=== PATIENT | female | born 1950 | race Caucasian/White ===

== ENCOUNTER 2016-05-19 15:51 | Observation (INO) | payer OTHER ==
[~2016-05-19] VITALS: Ht 152.4 cm; Wt 65.0 kg
[~2016-05-19 15:51] MED LIST: AMLO2.5T PO; ASPI81CH37 CHEW; LEVO50TA4 PO; PROT40TA PO; ZETI10TA5 PO
[2016-05-28] MEDS ORDERED: DENO60P SQ (12:25)
[2016-05-29 04:00] VITALS: BP 123/75; PULSE 70; RESP 19; TEMP 98.6; O2SAT 100
[2016-05-29] MEDS ORDERED: ceFAZolin 2 GM PREMIX 50 ML ONE (06:17)
[2016-05-29 06:38] VITALS: BP 135/79; PULSE 66; RESP 16; TEMP 98; O2SAT 98
[2016-05-29] MEDS ORDERED: INSULIN HUMAN REGULAR 1,000 UNITS/10 ML VIAL SQ PRN (06:45)
[2016-05-29] MEDS ORDERED: ceFAZolin 2 GM PREMIX 50 ML IV SCH (06:45)
[2016-05-29] MEDS ORDERED: METOPROLOL TARTRATE 25 MG TAB PO PRN (06:45)
--- NOTE | 2016-05-29 06:48 | RADRPT ---
EXAM DATE/TIME: 05/29/2016 06:31 [place] COMPARISON: No previous studies available for comparison. INDICATIONS : Evaluate for pneumonia,pneumothorax or any communicable diseases. MEDICAL HISTORY : None. SURGICAL HISTORY : None. ENCOUNTER: Initial ACUITY: 1 day PAIN SCORE: 0/10 LOCATION: chest FINDINGS: A single view of the chest demonstrates the lungs to be symmetrically aerated without evidence of mas s, infiltrate or effusion. The cardiomediastinal contours are unremarkable. Osseous structures are intact. CONCLUSION: Normal examination. Pedro Trinidad MD on May 29, 2016 at 6:47 Board Certified Radiologist. This report was verified electronically.
[2016-05-29 07:04] LABS: AUTOMATED NEUTROPHIL # 3.4 TH/MM3 (1.8-7.7); BASOPHIL # 0.1 TH/MM3 (0-0.2); BASOPHIL % 1.8 % (0.0-2.0); EOSINOPHIL # 0.2 TH/MM3 (0-0.4); EOSINOPHIL % 2.5 % (0.0-4.0); HEMO FLAGS DIFF FINAL; LYMPH % 34.6 % (9.0-44.0); LYMPHOCYTE # 2.3 TH/MM3 (1.0-4.8); MEAN CELL VOLUME 84.4 FL (80.0-100.0); MEAN CORPUSCULAR HEMOGLOBIN 28.1 PG (27.0-34.0); MEAN CORPUSCULAR HGB CONC 33.3 % (32.0-36.0); MONO % 10.9 % (0.0-8.0); NEUT % 50.2 % (16.0-70.0); PLATELET COUNT 329 TH/MM3 (150-450); RED BLOOD COUNT 4.39 MIL/MM3 (4.00-5.30); RED CELL DISTRIBUTION WIDTH 14.1 % (11.6-17.2); WHITE BLOOD COUNT 6.7 TH/MM3 (4.0-11.0)
[2016-05-29] MEDS ORDERED: BUPIVACAINE/EPINEPHRINE 0.25% PF 30 ML VIAL ONE (07:05)
[2016-05-29] MEDS ORDERED: FAMOTIDINE 20 MG/2 ML VIAL ONE (07:22)
[2016-05-29] MEDS ORDERED: ACETAMINOPHEN 1000 MG/100 ML VIAL IV ONE (07:22)
[2016-05-29] MEDS ORDERED: HYDROmorphone HCL PF 2 MG/ML VIAL ONE (07:23)
[2016-05-29] MEDS ORDERED: fentaNYL CITRATE 250 MCG/5 ML AMP ONE (07:23)
[2016-05-29] MEDS ORDERED: MIDAZOLAM HCL 2 MG/2 ML VIAL ONE (07:23)
[2016-05-29] MEDS ORDERED: APREPITANT 40 MG CAP ONE (07:44)
[2016-05-29] MEDS ORDERED: LACTATED RINGER'S 1000 ML IV SCH (08:00)
[2016-05-29] MEDS ORDERED: SODIUM CHLORID 0.9% 500 ML IV SCH (08:00)
[2016-05-29] MEDS ORDERED: MAGNESIUM HYDROXIDE SUSP 30 ML CUP PO PRN (09:30)
[2016-05-29] MEDS ORDERED: SODIUM CHLORIDE 0.9% FLUSH 5 ML FLUSH IVF PRN (09:30)
[2016-05-29] MEDS ORDERED: ONDANSETRON HCL 4 MG/2 ML VIAL IV PRN (09:30)
[2016-05-29] MEDS ORDERED: Post-op Orders (for Pharmacy) MISC XX ONE (09:30)
[2016-05-29] MEDS ORDERED: ACETAMINOPHEN/HYDROcodone 325 MG/5 MG TAB PO PRN ×2 (09:30)
--- NOTE | 2016-05-29 09:44 | PD.OP ---
Operative Report Date of Surgery: May 29, 2016 Preoperative Diagnosis: severe GERD, Hiatal hernia Postoperative Diagnosis: same Procedure: lap repair HH with partial fundoplication Anesthesia: general Surgeon: Sandor Rodriguez Odd Job Worker(s): Halle Pantoja Operation and Findings: small HH, 270 degree fundoplication, EBL less than 25 ml. Sandor Rodriguez MD May 29, 2016 09:44
[2016-05-29] MEDS ORDERED: NON-FORMULARY DRUG (Denosumab Inj (Prolia Inj) 60 MG) SQ SCH (09:45)
[2016-05-29] MEDS ORDERED: *morphine SULFATE 8 MG/ML PERIprocedure ONLY ONE (10:06)
[2016-05-29] MEDS ORDERED: MORPHINE SULFATE 4 MG/ML INJ IV PUSH PRN (10:15)
[2016-05-29] MEDS ORDERED: PILL SPLITTER OTHER PRN (10:15)
--- NOTE | 2016-05-29 10:28 | MP ---
cc: PERI PORTILLO M.D.,LESLIE MOORE DATE OF SURGERY: 05/29/2016 PREOPERATIVE DIAGNOSIS Severe gastroesophageal reflux disease and hiatal hernia. POSTOPERATIVE DIAGNOSIS Severe gastroesophageal reflux disease and hiatal hernia. PROCEDURE Laparoscopic repair hiatal hernia with partial fundoplication. SURGEON Dr. Peri Portillo. AIRLINE DISPATCHER Dr. Kole Murillo. ANESTHESIA General. INDICATIONS This is a very pleasant 66-year-old patient of Dr. Amin and Dr. Barnard who has had severe complaints of acid reflux disease and regurgitation and found on workup to have abnormal DeMeester score, esophagitis and unfortunately an abnormal esophageal manometry. Approximately 40% of her swallows do not propagate in a normal fashion and therefore plans were made for a partial fundoplication. INTRAOPERATIVE FINDINGS Relatively small hiatal hernia. A single suture placed to approximate the diaphragmatic crura. Approximate 270 degree partial fundoplication. Estimated blood loss less than 25 mL. DESCRIPTION OF PROCEDURE IN DETAIL The patient was identified as Nallely Vick, taken to the operating room and placed in the supine position. Sequential compression devices were placed on bilateral lower extremities. Following induction of adequate general endotracheal anesthesia, the patient's abdomen was prepped and draped in usual sterile fashion with Betadine. A time-out procedure was performed. Following completion of time-out procedure to everyone's satisfaction within room, 0.25% Marcaine with epinephrine was placed at each incision site. A small supraumbilical vertical incision was made with a scalpel and dissection continued posterior to the level of the midline fascia. The base of the umbilicus was retracted anteriorly and supraumbilical fascia was incised with a scalpel allowing for entry in the peritoneal cavity with a hemostat. Surgeon's finger confirmed intraperitoneal location. The applied medical balloon Yuan trocar was placed in the peritoneal cavity, its balloon inflated with C02 insufflation until a level of 15 mmHg ensued. The patient was placed in a steep reverse Trendelenburg position and four upper abdominal 5 mm trocars were placed in the peritoneal cavity direct laparoscopic view after incision of skin with scalpel. A long мария flex liver retractor was placed beneath the left lateral lobe of the liver and retracted anteriorly, thus identifying the diaphragmatic defect. Attention was turned first taking down the gastrohepatic ligament which was performed with the harmonic scalpel, which allowed for identification of the right diaphragmatic crura. Tissue was carefully dissected free of the right diaphragmatic crura entering the mediastinal tissues. Dissection continued across the anterior portion of the diaphragmatic crura. Once this had been dissected nicely, attention was turned to taking down the short gastric vessels. These were taken down carefully using the harmonic scalpel all the way until the left diaphragmatic crura was identified and it was gently dissected free of the attached tissues. This allowed for development of posterior esophageal window posterior to the identified posterior vagus nerve which was left intact. The acosta's hook мария flex retractor was then placed through this posterior window to facilitate elevation of the GE junction and further dissection of the esophagus free from mediastinal tissues. This was performed with a harmonic scalpel. This resulted in excellent exposure and return of the GE junction to the infra and diaphragmatic position. The acosta's hook retractor was removed and the fundus of the stomach was brought through the posterior window using blunt graspers. This lay without any tension on the right side of the esophagus. Sequential dilatation of the esophagus with esophageal bougies was performed by the nurse conference services director who passed a 36, then 44, then 48-Romansh bougie. Due to the relative small size of the patient the 48-Romansh bougie was left in position. Using the suture lpn medical assistant device and 0-Ethibond sutures, single stitch was placed in the posterior diaphragmatic crura to approximate the hiatal hernia defect. There was no tension on the suture at all. Approximately 270 degree fundoplication was then performed, first placing three sutures from the stomach on the right side of the esophagus to the diaphragmatic crura on the right and then suturing the full-thickness stomach to partial-thickness esophagus at about the 10 o'clock position of the esophagus on the right side. Attention was then turned to placement of three sutures at about the 2 o'clock position of the esophagus, full-thickness stomach, partial-thickness esophagus. At this point esophageal bougie was removed to facilitate approximation of the fundal wrap to the left side diaphragmatic crura with three separate sutures using again the Ethibond suture and the suture lpn medical assistant device. This completed the 270 degree partial fundoplication. There was minimal bloody drainage which was suctioned out. There was no evidence of bleeding continuing anywhere. Photographs were taken throughout the procedure to document the different anatomic features of the procedure. Remaining local anesthetic was placed in the subdiaphragmatic position. The left lateral lobe of the liver Мария-flex retractor was removed. There was no evidence of injury to the liver. The gallbladder appeared normal, other intra-abdominal contents on brief survey also appeared normal. Trocars were removed under direct visualization. There was no evidence of bleeding from trocar sites. The abdomen was actively desufflated through the supraumbilical port which was then removed. Supraumbilical fascial incision was closed with interrupted 0 Vicryl sutures. Port site skin incisions were approximated with 4-0 Monocryl subcuticular sutures. Dressings were applied with Mastisol, half-inch brown Steri-Strips. The patient tolerated the procedure without apparent complication. Sponge, needle and instrument counts were correct at the end of the case. MD EMELY Catherine/TLL /9:38 AM /9:50 AM
[2016-05-29] MEDS ORDERED: NEOSTIGMINE 3 MG/3 ML SYR IV ONE (10:35)
[2016-05-29] MEDS ORDERED: ONDANSETRON HCL 4 MG/2 ML VIAL IV PUSH ONE (10:35)
[2016-05-29] MEDS ORDERED: PHENYLEPH/NS 1000 MCG/10 ML SYR IV ONE (10:35)
[2016-05-29] MEDS ORDERED: PROPOFOL 200 MG/20 ML AMP IV ONE (10:35)
[2016-05-29] MEDS ORDERED: SODIUM CHLORID 0.9% 500 ML INJ 500 ML IV ONE (10:36)
[2016-05-29] MEDS: SODIUM CHLOR 0.9% 1000 ML INJ 1,000 ML IV SCH ×2 (10:40→20:28)
[2016-05-29 13:00] LABS: POTASSIUM 3.7 MEQ/L (3.5-5.1)
[2016-05-29] MEDS: ACETAMINOPHEN 1000 MG/100 ML VIAL IV SCH ×2 (13:08→20:28)
[2016-05-29 16:34] VITALS: O2SAT 95
[2016-05-29] MEDS ORDERED: HYDR-3533 PO (18:13)
--- NOTE | 2016-05-29 18:17 | HHI.DS ---
Discharge Summary Admission Date May 29, 2016 at 05:53 Discharge Date: May 30, 2016 Admitting Diagnosis severe GERD, HH Procedures lap repair HH with partial fundoplication Brief History 66 year old woman with severe GERD and small HH. She desires anti reflux surgery , she had 40% abnormal swallows on manometry. CBC/BMP: 05/29/16 0620 05/29/16 1221 Significant Findings Laboratory Tests Test 05/29/16 05/29/16 06:20 12:21 Monocytes (%) (Auto) 10.9 % (0.0-8.0) Estimat Glomerular Filtration 74 ML/MIN (>89) Rate Random Glucose 116 MG/DL (74-106) Calcium Level 8.3 MG/DL (8.5-10.1) PE at Discharge incisions healing well. Minimal dried bloody drainage at umbilical incision. Hospital Course admitted through [facility], had surgery, recovered without incident. Tolerating po liquids, no swallowing difficulty, no reflux. Pt Condition on Discharge: Good Discharge Disposition: Discharge Home Discharge Instructions DIET: Follow Instructions for: Full Liquid Diet Activities you can perform: Shower Only-No Bath Activities to Avoid: Strenuous Activity Sandor Rodriguez MD May 29, 2016 18:17
--- NOTE | 2016-05-29 19:05 | EKG ---
Date Performed: 05/29/2016 Time Performed: 06:48:26 PTAGE: 66 years EKG: Sinus rhythm LOW QRS VOLTAGE IN PRECORDIAL LEADS BORDERLINE ECG Nonspecific ST and T wave abnormalities NO PREVIOUS TRACING DOCTOR: Ajit Mckeon Interpretating Date/Time 05/29/2016 19:04:59
[2016-05-29 20:01] VITALS: BP 105/61; PULSE 79; RESP 18; TEMP 97.9; O2SAT 96
[2016-05-29] MEDS: SODIUM CHLORIDE 0.9% FLUSH 5 ML FLUSH IVF SCH (20:28)
[2016-05-29] MEDS ORDERED: amLODIPine BESYLATE 5 MG TAB PO SCH (21:00)
[2016-05-29 22:29] VITALS: O2SAT 94
[2016-05-29 23:46] VITALS: BP 114/72; PULSE 85; RESP 18; TEMP 96.5; O2SAT 95
[2016-05-30] MEDS: ACETAMINOPHEN 1000 MG/100 ML VIAL IV SCH ×2 (02:00→08:04)
[2016-05-30 04:11] VITALS: BP 125/64; PULSE 86; RESP 18; TEMP 96.4; O2SAT 96
[2016-05-30] MEDS: SODIUM CHLOR 0.9% 1000 ML INJ 1,000 ML IV SCH (05:14)
[2016-05-30] MEDS ORDERED: LEVOTHYROXINE SODIUM 50 MCG TAB PO SCH (06:00)
[2016-05-30 08:04] VITALS: BP 147/81; PULSE 90; RESP 20; TEMP 97.1; O2SAT 96
[2016-05-30] MEDS: SODIUM CHLORIDE 0.9% FLUSH 5 ML FLUSH IVF SCH (08:12)
[2016-05-30] MEDS ORDERED: EZETIMIBE 10 MG TAB PO SCH (09:00)
[2016-05-30] MEDS ORDERED: PANTOPRAZOLE SOD 40 MG DELAYED RELEASE TAB PO SCH (09:00)
[2016-05-30] MEDS ORDERED: ASPIRIN 81 MG CHEW TAB CHEW SCH (09:00)
[2016-05-30] MEDS ORDERED: ENOXAPARIN SODIUM 30 MG/0.3 ML SYRINGE SQ SCH (09:00)
== END 2016-05-30 09:58 | disposition home or self-care (01) ==
LOC: HSDI 05-29 05:53 → UNDOADMIN 05-29 05:53 → INTOOBSV 05-29 09:31 → HSDI 05-29 09:31 → N07A 05-29 12:48 → UNDODISIN 05-30 09:58
PROVIDERS: ADMIT Surgery Trauma Surgery; ATTEND Surgery Trauma Surgery
DX: K21.0 Gastro-esophageal reflux disease with esophagitis (principal); K44.9 Diaphragmatic hernia without obstruction or gangrene; I10 Essential (primary) hypertension
CPT/HCPCS: 00790; 43281; 71010; 80048; 85025; 93005; G0378; J0131; J0690; J1650; J2250; J2270; J2370; J2405; J2710; J3010; J7030; J7040; J7120; J8501; J1170